=== PATIENT | male | born 1950 | race Caucasian/White ===

== ENCOUNTER 2018-01-14 14:38 | Outpatient (CLI) | payer MEDICARE | END 2018-01-14 14:39 | disposition home or self-care (01) | LOC: CTENTCT 14:38 | PROVIDERS: ATTEND Otolaryngology Plastic Surgery within the Head & Neck | DX: J32.9 Chronic sinusitis, unspecified (principal) | CPT/HCPCS: 70486 ==

== ENCOUNTER 2018-02-03 07:40 | Day surgery (SDC) | payer MEDICARE ==
[2018-02-02 13:30] VITALS: BMI 31.3
[2018-02-03] MEDS ORDERED: Oxymetazoline HCl 0.05% ( 15 ML ) ONE ×2 (09:23→10:45)
[2018-02-03 10:16] LABS: Anion Gap 14 mmol/L (10-20); BUN (Urea Nitrogen) 14 mg/dL (8.4-25.7); Calc. Creatinine Clearance 76 mL/min (70-130); Calcium 9.2 mg/dL (7.8-10.44); Carbon Dioxide 22 mmol/L (23-31); Chloride 109 mmol/L (98-107); Estimated GFR-MDRD 60; Glucose 105 mg/dL (80-115); Potassium 4.4 mmol/L (3.5-5.1); Sodium 141 mmol/L (136-145)
[2018-02-03 10:27] LABS: #Eosinphils 0.4 thou/uL (0.0-0.7); #Lymphocytes 1.5 thou/uL (1.20-3.40); #Monocytes 0.6 thou/uL (0.11-0.59); %Basophils 0.7 % (0.0-1.0); %Eosinophils 8.1 % (0.0-10.0); %Lymphocytes 26.5 % (21.0-51.0); %Monocytes 9.9 % (0.0-10.0); %Neutrophils 54.8 % (42.0-75.0); Hemoglobin 13.7 g/dL (14.0-18.0); Mean Corpuscular HGB CONC 33.8 g/dL (32.0-36.0); Mean Corpuscular Hemoglobin 30.4 pg (27.0-31.0); Mean Corpuscular Volume 89.7 fL (78.0-98.0); Mean Platelet Volume 6.5 fL (7.4-10.4); Platelet Count 253 thou/uL (130-400); RBC Distribution Width 12.3 % (11.5-14.5); Red Blood Cell (RBC) Count 4.51 mill/uL (4.70-6.10); White Blood Cell (WBC) Count 5.5 thou/uL (4.8-10.8)
[2018-02-03] MEDS ORDERED: Fentanyl 250 MCG/5 ML VIAL ONE (10:44)
[2018-02-03] MEDS ORDERED: Midazolam HCl 2 mg/2 ml Vial ONE (10:44)
[2018-02-03] MEDS ORDERED: Lidocaine 1% w/Epinephrine 1:100K 30 ML VIAL ONE (10:45)
[2018-02-03] MEDS ORDERED: Fentanyl 100 MCG/2 ML VIAL ONE (12:10)
[2018-02-03] MEDS ORDERED: Hydrocodone-Acetamin 15 ML UDCUP ONE (14:11)
[2018-02-03] MEDS ORDERED: PROPOFOL 200 MG/20 ML VIAL ONE (14:32)
[2018-02-03] MEDS ORDERED: Lidocaine 1% PF 5 ML VIAL ONE (14:32)
[2018-02-03] MEDS ORDERED: Ondansetron HCl/PF 4 MG/2 ML Vial ONE (14:32)
[2018-02-03] MEDS ORDERED: Succinylcholine Chloride 20 MG/ML 10 ml SYRINGE FS ONE (14:32)
[2018-02-03] MEDS ORDERED: ePHEDrine/0.9% NaCl/PF SYRINGE 50 mg/10 ml ONE (14:32)
[2018-02-03] MEDS ORDERED: Dexamethasone 20 MG/5 ML VIAL ONE (14:32)
--- NOTE | 2018-02-03 19:15 | OP ---
PREOPERATIVE DIAGNOSES: 1. Chronic pansinusitis. 2. Nasal polyposis. 3. Allergic fungal sinusitis. 4. Bilateral inferior turbinate hypertrophy. 5. Nasal obstruction. POSTOPERATIVE DIAGNOSES: 1. Chronic pansinusitis. 2. Nasal polyposis. 3. Allergic fungal sinusitis. 4. Bilateral inferior turbinate hypertrophy. 5. Nasal obstruction. PROCEDURES: 1. Bilateral endoscopic sinus surgery, total ethmoidectomies. 2. Bilateral endoscopic sinus surgery, maxillary antrostomies. 3. Bilateral endoscopic sinus surgery, frontal sinusotomies. 4. Bilateral endoscopic sinus surgery, sphenoidotomies. 5. Bilateral inferior turbinate submucosal resection. 6. Right endoscopic resection of nasal polyposis and nasal polypectomy. 7. [place] image-guided CT scan calibration set up and cranial based navigation surgery. SURGEON: Edison Galvez M.D. ESTIMATED BLOOD LOSS: 100 mL COMPLICATIONS: None. ANESTHESIA: GETA. PROCEDURE IN DETAIL: The patient was placed supine on the operating table. General endotracheal ane sthesia was obtained by the Anesthesia staff. Tube was secured in the left lower lip. The patient w as placed in the beach chair position and prepped and draped for standard nasal procedure. Following this, the landmark image guided system was set up, calibrated and intraoperative CT interpretation c onfirmed the previous preoperative findings. Following this, using the image-guided camera, the 1% l idocaine with 1:100,000 epinephrine was injected into the nasal septum, inferior turbinates, and bila teral middle turbinates as well as the extreme amount of nasal polyps which were severe and nearly co mpletely obstructing the right nasal cavity. Following this, the 0 degree microdebrider was first us ed to remove the polyps and right nasal cavity exposing some of the lateral wall structures. Followi ng this, the bilateral middle turbinates were gently medialized using a [place] elevator. The remnant uncinate process on the right side was removed using the microdebrider. There were large amounts of polyps and fungal debris in the right maxillary sinus, which were removed using the curved microdebri arianne from within the sinus as well as from the sinus ostia area. Following this, the ethmoidal bulla has pretty much been obliterated by the nasal polyps and fungal disease. This was all opened and rem mylene using a combination of straight and upbiting microdebrider forceps using the image-guided system . Following this, the grand lamella was identified and was punctured in the posterior ethmoidal cell s on this right side. It was removed using the straight [place] forceps and straight microdebrider . Using the image-guidance system, the cranial base was identified and ethmoidectomy proceeded from a posterior to anterior direction removing all polyps and necrotic and atrophic bone. The sphenoid s inus was then approached through the ethmoidectomies on this right side and sphenoidotomies were crea quan and were widened medially and inferiorly using the microdebrider. The frontal sinus ostia on the right was then irrigated using the landmark image guided system and was punctured and was widened us ing the curved image guided microdebrider. Following this, the left side was identified. The middle turbinate was medialized. The uncinate process was anteriorly fractured and removed using the micro debrider. Maxillary ostia was identified and was gently widened using the curved microdebrider on th is left side. The ethmoidal bulla was identified and was punctured on its medial and inferior aspect , was removed using the straight microdebrider. The grand lamella was identified and was punctured i n the posterior ethmoidal cells. Working from posterior to anterior, the ethmoidal cells in this lef t side were opened in a mucosal-sparing technique. The sphenoid sinus ostia was identified in this l eft side and was punctured and it was widened medially and inferiorly with the straight microdebrider . Following this, the 40-degree microdebrider along the 45 degree scope were used to further open th e frontal recess cells. It was noted that the fungal debris and polyps had actually caused erosion t o the posterior portion of the nasal septum. It was mucosally lined and no further intervention in t his area other than and description was performed. The patient tolerated the procedure well. Nasal MeroPacks were placed in the middle meatus bilaterally and a Merocel absorbable nasal tampon wa s placed in the right side due to some anticipated epistaxis. The patient tolerated the procedure we ll.
== END 2018-02-03 15:47 | disposition home or self-care (01) ==
LOC: SDC 07:40
PROVIDERS: ATTEND Otolaryngology Plastic Surgery within the Head & Neck
PROC: 09BQ8ZX Excision of Right Maxillary Sinus, Via Natural or Artificial Opening Endoscopic, Diagnostic (ICD-10-PCS; principal; 2018-02-03)
PROC: 09BL8ZZ Excision of Nasal Turbinate, Via Natural or Artificial Opening Endoscopic (ICD-10-PCS; 2018-02-03)
DX: D14.0 Benign neoplasm of middle ear, nasal cavity and accessory sinuses (principal); J32.9 Chronic sinusitis, unspecified; J34.3 Hypertrophy of nasal turbinates; J30.9 Allergic rhinitis, unspecified; Z87.891 Personal history of nicotine dependence; Z79.899 Other long term (current) drug therapy
CPT/HCPCS: 36415; 80048; 85025; 88305; J1100; J2001; J2250; J2405; J2704; J3010

== ENCOUNTER 2024-05-27 10:06 | Emergency (ER) | payer MEDICARE ==
[2024-05-27 11:03] LABS: #Basophils 0.08 10x3/uL (0.0-0.2); %Basophils 0.8 % (0.0-1.0); %Eosinophils 6.1 % (0.0-10.0); %Lymphocytes 17.7 % (21.0-51.0); %Neutrophils 65.2 % (42.0-75.0); Hematocrit 38.8 % (42.0-52.0); Hemoglobin 13.1 g/dL (14.0-18.0); Mean Corpuscular HGB CONC 33.8 g/dL (32.0-36.0); Mean Corpuscular Hemoglobin 29.8 pg (27.0-31.0); Mean Corpuscular Volume 88.4 fL (78.0-98.0); Mean Platelet Volume 9.2 fL (7.4-10.4); Platelet Count 250 10x3/uL (130-400); RBC Distribution Width 14.3 % (11.5-14.5); Red Blood Cell (RBC) Count 4.39 mill/uL (4.70-6.10)
[2024-05-27 13:54] LABS: ALT (SGPT) 9 U/L (8-55); AST (SGOT) 14 U/L (5-34); Albumin 3.1 g/dL (3.4-4.8); Alkaline Phosphatase 59 U/L (40-110); Anion Gap 14 mmol/L (10-20); BUN (Urea Nitrogen) 7 mg/dL (8.4-25.7); Bilirubin, Total 0.5 mg/dL (0.2-1.2); Calc. Creatinine Clearance 0 mL/min (70-130); Calcium 7.4 mg/dL (7.8-10.44); Carbon Dioxide 26 mmol/L (23-31); Chloride 108 mmol/L (98-107); Estimated GFR 68; Globulin 3.9 g/dL (2.4-3.5); Glucose 103 mg/dL (83-110); Lipase 25 U/L (8-78); Potassium 3.7 mmol/L (3.5-5.1); Sodium 144 mmol/L (136-145)
== END 2024-05-27 14:35 | disposition home or self-care (01) ==
LOC: ERS 10:06
DX: K58.0 Irritable bowel syndrome with diarrhea (principal); I48.91 Unspecified atrial fibrillation; Z79.01 Long term (current) use of anticoagulants; Z79.899 Other long term (current) drug therapy
CPT/HCPCS: 36415; 80053; 83690; 85025; 99284